=== PATIENT | female | born 1970 | race Asian ===

== ENCOUNTER → 2019-02-10 08:58 | Outpatient (CLI) | payer OTHER, SELFPAY ==
--- NOTE | 2019-02-10 09:04 | DI.MG.S_ITS ---
BILATERAL DIGITAL SCREENING MAMMOGRAM 3D/2D WITH CAD: 02/10/2019 CLINICAL: Routine screening. Comparison is made to exam dated: 05/16/2013 [facility]. There are scattered fibroglandular elements in both breasts. Current study was also evaluated with a Computer Aided Detection (CAD) system. No significant masses, calcifications, or other findings are seen in either breast. There has been no significant interval change. IMPRESSION: NEGATIVE There is no mammographic evidence of malignancy. A 1 year screening mammogram is recommended. This exam was interpreted at Station ID: [id number]. NOTE: For mammograms, a report in lay terms will be sent to the patient. Approximately 15% of breast malignancies will not be visualized mammographically. In the management of a palpable breast mass, a negative mammogram must not discourage biopsy of a clinically suspicious lesion. Electronically Signed By: Sherri nunes/jerry:02/12/2019 14:56:56 letter sent: Normal Exam ACR BI-RADS Category 1: Negative [id number]
[2019-02-10 10:09] LABS: Appearance Urine UA CLEAR; Bilirubin Urine UA NEGATIVE (NEGATIVE); Color Urine UA YELLOW; Glucose Urine UA NEGATIVE (Negative); Ketones Urine UA NEGATIVE (NEGATIVE); Leukocyte Esterase Urine UA NEGATIVE (NEGATIVE); Nitrite Urine UA NEGATIVE (Negative); Occult Blood Urine UA NEGATIVE (Negative); Protein Urine UA NEGATIVE (Negative); Specific Gravity Urine UA 1.025 (1.000-1.035); Urobilinogen Urine UA 0.2 E.U./dL (0.2)
[2019-02-10 10:10] LABS: Add Manual Diff / Slide Review NO; Basophils Absolute Auto 100 /uL (0-100); Eosinophils Absolute Auto 200 /uL (0-450); Eosinophils Percent Auto 3.6 % (2-4); Hematocrit 42.5 % (36-46); Hemoglobin 14.4 g/dL (12.0-16.0); Lymphocytes Absolute Auto 2500 /uL (1100-4500); Lymphocytes Percent Auto 43.9 % (25-40); Mean Corpuscular Hemoglobin 29.5 PG (26-34); Mean Corpuscular Volume 86.8 fL (80-100); Monocytes Absolute Auto 300 /uL (0-900); Monocytes Percent Auto 5.8 % (3-14); Neutrophils Absolute Auto 2600 /uL (1500-7000); Neutrophils Percent Auto 45.7 % (50-75); Platelet Count 234 X10^3/uL (150-400); Red Cell Distribution Width 13.1 % (11.6-14.8); White Blood Cell Count 5.6 X10^3/uL (4.5-11.0)
[2019-02-10 10:21] LABS: Alanine Aminotransferase 44 IU/L (9-52); Albumin Globulin Ratio 1.5 (1.0-2.8); Alkaline Phosphatase 62 U/L (38-126); Aspartate Aminotransferase 23 IU/L (14-36); Bilirubin Total 0.8 mg/dL (0.2-1.3); Blood Urea Nitrogen 14 mg/dL (7-17); Carbon Dioxide 26 mmol/L (22-32); Chloride 103 mmol/L (98-107); Cholesterol 291 mg/dL (140-199); Estimated Glomerular Filt Rate > 60.0 mL/min (>60); Globulin 3.3 g/dL (1.7-4.1); Glucose 113 mg/dL (70-100); HDL Cholesterol 36 mg/dL (40-60); HEMOLYSIS < 15 (0-50); LDL Cholesterol Calculated 217 mg/dL (<100); Sodium 142 mmol/L (137-145); Total Protein 8.3 g/dL (6.3-8.2); Triglycerides 189 mg/dL (35-150)
[2019-02-10 10:35] LABS: Free T3, Triiodothyronine Free 4.19 pg/mL (2.77-5.27); Free T4, Direct Thyroxine 1.07 ng/dL (0.78-2.19)
[2019-02-10 10:49] LABS: Thyroid Stimulating Hormone 4.01 uIU/mL (0.47-4.68)
== END ==
PROVIDERS: PCP Family Medicine; Visit Provider Family Medicine
DX: Z12.31 Encounter for screening mammogram for malignant neoplasm of breast (principal); M54.6 Pain in thoracic spine; M54.9 Dorsalgia, unspecified; G89.29 Other chronic pain; E03.9 Hypothyroidism, unspecified; R51 Headache
CPT/HCPCS: 36415; 77063; 77067; 80053; 80061; 81003; 84439; 84443; 84481; 85025

== ENCOUNTER → 2019-03-20 15:29 | Outpatient (CLI) | payer OTHER, SELFPAY ==
--- NOTE | 2019-03-20 15:31 | DI.RAD.S_ITS ---
PROCEDURE: XR THORACIC SPINE 3V INDICATIONS: THORACIC PAIN, PAIN BETWEEN SHOULDER BLADES, CHRONIC TECHNIQUE: 3 views of the thoracic spine were acquired. COMPARISON: None. FINDINGS: Bones: No fractures or dislocations. Gentle levocurvature of the lower thoracic spine. This is likely related to positioning. No suspicious bony lesions. 12 pairs of ribs are noted, and appear intact where visualized. Soft tissues: No paravertebral stripe thickening. IMPRESSION: Thoracic spine without acute radiographic abnormalities. No significant spondylitic changes identified. Dictated by: William Ying M.D. on 03/20/2019 at 17:34 Approved by: William Ying M.D. on 03/20/2019 at 17:35
== END ==
PROVIDERS: PCP Family Medicine; Visit Provider Family Medicine
DX: M54.6 Pain in thoracic spine (principal); M54.9 Dorsalgia, unspecified; S39.012A Strain of muscle, fascia and tendon of lower back, initial encounter; G89.29 Other chronic pain
CPT/HCPCS: 72072

== ENCOUNTER → 2020-03-21 15:31 | Outpatient (CLI) | payer BC, SELFPAY ==
--- NOTE | 2020-03-21 15:32 | DI.RAD.S_ITS ---
PROCEDURE: XR SHOULDER LT MIN 2V INDICATIONS: Left shoulder pain TECHNIQUE: 3 views of the shoulder were acquired. COMPARISON: None. FINDINGS: Bones: No fractures or dislocations. No suspicious bony lesions. Visualized ribs appear intact. Soft tissues: No suspicious soft tissue calcifications. IMPRESSION: Negative examination. If the patient's pain or other symptoms persist, consider further evaluation with MRI Dictated by: Patricio Christensen M.D. on 03/21/2020 at 16:36 Approved by: Patricio Christensen M.D. on 03/21/2020 at 16:37
== END ==
PROVIDERS: PCP Family Medicine; Referring Provider Family Medicine; Visit Provider Family Medicine
DX: M75.02 Adhesive capsulitis of left shoulder (principal); M75.42 Impingement syndrome of left shoulder; M25.512 Pain in left shoulder
CPT/HCPCS: 73030

== ENCOUNTER → 2020-03-28 08:55 | Outpatient (CLI) | payer BC, SELFPAY ==
[2020-03-28 10:01] LABS: Hemoglobin A1C% w Est Avg Glu 6.3 % (4.0-6.0)
[2020-03-28 10:20] LABS: Cholesterol 293 mg/dL (140-199); HDL Cholesterol 42 mg/dL (40-60); LDL Cholesterol Calculated 218 mg/dL (<100); Triglycerides 167 mg/dL (35-150)
[2020-03-28 10:51] LABS: TSH w/ Reflex to FT4 3.65 uIU/mL (0.47-4.68)
== END ==
PROVIDERS: PCP Family Medicine; Referring Provider Family Medicine; Visit Provider Family Medicine
DX: E03.9 Hypothyroidism, unspecified (principal); E78.2 Mixed hyperlipidemia
CPT/HCPCS: 36415; 80061; 83036; 84443

== ENCOUNTER → 2020-07-25 06:23 | Outpatient (CLI) | payer BC, SELFPAY ==
--- NOTE | 2020-07-25 06:28 | DI.MRI.S_ITS ---
PROCEDURE: MR SHOULDER LT WO CON INDICATIONS: left shoulder pain/frozen shoulder TECHNIQUE: Noncontrast oblique coronal T2 fast spin echo with fat saturation, oblique sagittal T1 spin echo and T2 fast spin echo with fat saturation, axial T1 spin echo and T2 fast spin echo with fat saturation through the shoulder. COMPARISON: [facility], CR, XR SHOULDER LT MIN 2V, 03/21/2020, 16:35. FINDINGS: Image quality: Excellent. Rotator cuff: There is mild to moderate articular surface partial thickness tearing in the supraspinatus distally extending to its insertion. This measures approximately 1.5 cm in anteroposterior dimension. Mild edema is demonstrated more proximally along the myotendinous junction within the anterior supraspinatus. No discrete full-thickness tear or tendon retraction. The infraspinatus, subscapularis, and teres minor appear intact. Sagittal images demonstrate no fatty muscle atrophy. Bones and bursae: No bone marrow contusions or fractures. There is mild acromioclavicular joint degeneration. The acromion demonstrates conventional anatomy, without an os acromiale. A small amount of subacromial-subdeltoid bursal fluid is present anteriorly. Capsule and soft tissues: There is mild degenerative signal within the posterosuperior, anterior inferior, and inferior labrum. The glenohumeral ligaments appear intact. The long head of the biceps tendon demonstrates normal location and morphology. There is mild edema within the rotator interval and minimal edema along the axillary pouch suggestive of a mild capsulitis. The coracohumeral ligament is normal in thickness. IMPRESSION: 1. Mild to moderate articular surface partial thickness tearing in the distal supraspinatus. No discrete full-thickness tear or tendon retraction. 2. Mild acromioclavicular joint degeneration with a small amount of subacromial/subdeltoid bursal fluid anteriorly . The findings are suggestive of impingement in the appropriate clinical context. 3. Mild edema within the rotator interval and minimal edema along the axillary pouch may reflect a mild capsulitis. Dictated by: Horacio Gallagher M.D. on 07/25/2020 at 9:31 Approved by: Horacio Gallagher M.D. on 07/25/2020 at 9:41
== END ==
PROVIDERS: PCP Family Medicine; Referring Provider Family Medicine; Visit Provider Family Medicine
DX: M75.02 Adhesive capsulitis of left shoulder (principal); M75.42 Impingement syndrome of left shoulder; S46.912S Strain of unspecified muscle, fascia and tendon at shoulder and upper arm level, left arm, sequela; M25.412 Effusion, left shoulder; M19.012 Primary osteoarthritis, left shoulder
CPT/HCPCS: 73221

== ENCOUNTER → 2023-01-31 07:23 | Outpatient (CLI) | payer BC, SELFPAY ==
[2023-01-31 08:11] LABS: Add Manual Diff / Slide Review NO; Basophils Absolute Auto 100 /uL (0-100); Basophils Percent Auto 1.1 % (0-2); Eosinophils Absolute Auto 300 /uL (0-450); Eosinophils Percent Auto 4.9 % (2-4); Hematocrit 41.4 % (36-46); Hemoglobin 13.9 g/dL (12.0-16.0); Lymphocytes Absolute Auto 3300 /uL (1100-4500); Lymphocytes Percent Auto 47.3 % (25-40); Mean Corpuscular HGB Conc 33.7 % (30-36); Mean Corpuscular Hemoglobin 28.8 PG (26-34); Mean Corpuscular Volume 85.4 fL (80-100); Monocytes Absolute Auto 400 /uL (0-900); Monocytes Percent Auto 5.3 % (3-14); Neutrophils Absolute Auto 2900 /uL (1500-7000); Neutrophils Percent Auto 41.4 % (50-75); Platelet Count 224 X10^3/uL (150-400); Red Blood Cell Count 4.85 X10^6/uL (4.0-5.2); Red Cell Distribution Width 13.6 % (11.6-14.8); White Blood Cell Count 6.9 X10^3/uL (4.5-11.0)
[2023-01-31 08:24] LABS: Alanine Aminotransferase 57 IU/L (<35); Albumin 4.4 g/dL (3.5-5.0); Albumin Globulin Ratio 1.3 (1.0-2.8); Alkaline Phosphatase 61 U/L (38-126); Aspartate Aminotransferase 24 IU/L (14-36); BUN Creatinine Ratio 29.4 (6-22); Bilirubin Total 0.4 mg/dL (0.2-1.3); Blood Urea Nitrogen 20 mg/dL (7-17); Calcium 9.5 mg/dL (8.4-10.2); Carbon Dioxide 23 mmol/L (22-32); Chloride 105 mmol/L (98-107); Cholesterol 261 mg/dL (140-199); Estimated Glomerular Filt Rate > 60 mL/min (>60); Globulin 3.3 g/dL (1.7-4.1); Glucose 121 mg/dL (70-100); HDL Cholesterol 33 mg/dL (40-60); HEMOLYSIS 21 (0-50); Hemoglobin A1C% w Est Avg Glu 6.4 % (4.0-6.0); LDL Cholesterol Calculated 182 mg/dL (<100); Potassium 4.1 mmol/L (3.4-5.1); Sodium 138 mmol/L (137-145); Total Protein 7.7 g/dL (6.3-8.2); Triglycerides 231 mg/dL (35-150)
[2023-01-31 08:54] LABS: TSH w/ Reflex to FT4 5.68 uIU/mL (0.47-4.68)
[2023-01-31 09:17] LABS: Creatinine Urine Random 93.3 mg/dL
[2023-01-31 09:30] LABS: Microalbumin Urine Random < 0.6 mg/dL (0-1.6)
[2023-01-31 09:56] LABS: Free T4, Direct Thyroxine 0.97 ng/dL (0.78-2.19)
== END ==
PROVIDERS: PCP Family Medicine; Referring Provider Family Medicine; Visit Provider Family Medicine
DX: E03.9 Hypothyroidism, unspecified (principal); E78.2 Mixed hyperlipidemia; R73.03 Prediabetes
CPT/HCPCS: 36415; 80053; 80061; 82043; 82570; 83036; 84439; 84443; 85025

== ENCOUNTER → 2024-11-09 09:43 | Outpatient (CLI) | payer BC, SELFPAY ==
--- NOTE | 2024-11-09 09:44 | DI.RAD.S_ITS ---
PROCEDURE: XR WRIST RT MIN 3V INDICATIONS: right wrist pain, possible ganglion cyst TECHNIQUE: 4 views of the wrist were acquired. COMPARISON: None. FINDINGS: Bones: No fractures or dislocations. Accessory ossicle posterior to the lunate best seen on the lateral projection. No osseous erosion is seen. No suspicious bony lesions. Soft tissues: No suspicious soft tissue calcifications. IMPRESSION: No acute fracture demonstrated. Accessory ossicle posterior to the lunate. Dictated by: Vikas Haney M.D. on 11/10/2024 at 14:26 Approved by: Vikas Haney M.D. on 11/10/2024 at 14:34
== END ==
PROVIDERS: PCP Family Medicine; Referring Provider Family Medicine; Visit Provider Family Medicine
DX: M67.431 Ganglion, right wrist (principal); M25.531 Pain in right wrist
CPT/HCPCS: 73110

== ENCOUNTER → 2025-02-22 12:54 | Outpatient (CLI) | payer BC, SELFPAY ==
--- NOTE | 2025-02-22 12:57 | DI.MRI.S_ITS ---
PROCEDURE: MR WRIST RT W CON
--- NOTE | 2025-02-22 12:57 | DI.RAD.S_ITS ---
PROCEDURE: FL ARTHROGRAM WRIST RT
[2025-02-22] MEDS: LIDOCAINE 1% 20 ML INJ (13:42)
[2025-02-22] MEDS: SODIUM CHLORIDE 0.9 % 20 ML VIAL IV (13:43)
== END ==
LOC: RAD 12:54
PROVIDERS: PCP Family Medicine; Referring Provider Family Medicine; Visit Provider Physician Assistant Surgical
DX: S63.8X1A Sprain of other part of right wrist and hand, initial encounter (principal); X58.XXXA Exposure to other specified factors, initial encounter
CPT/HCPCS: 25246; 73115; 73222; A9579; Q9967

== ENCOUNTER → 2025-03-15 15:53 | Outpatient (CLI) | payer BC, SELFPAY ==
--- NOTE | 2025-03-15 15:55 | DI.MG.S_ITS ---
MM screening mammo BI: 03/15/2025. BI-RADS: 1 CLINICAL: 54-year old female for bilateral screening mammogram. Tyrer-Cuzick lifetime risk of 7.0%. No personal or first-degree family history of breast cancer. PRIOR EXAMS 02/10/2019. MAMMOGRAPHY TECHNIQUE: 2D and 3D (tomosynthesis) digital mammographic views obtained, with additional images as needed for full coverage. Current study was also evaluated with a Computer Aided Detection (CAD) system. DENSITY B. There are scattered areas of fibroglandular density. MAMMOGRAPHY FINDINGS Bilateral: No suspicious mass, asymmetry, microcalcification, or other abnormality seen. IMPRESSION: * No evidence of malignancy. RECOMMENDATIONS Bilateral * Annual screening mammography. OVERALL ASSESSMENT CATEGORY BI-RADS-1: Negative. The [employer] recommends annual screening mammography beginning at age 40 for women with average risk of breast cancer. ELECTRONICALLY SIGNED: Mariana Galdamez M.D. on 03/18/2025 at 12:56:39 PM PT Interpreting Station ID: [id number]
== END ==
LOC: MAMMO 15:54
PROVIDERS: PCP Family Medicine; Referring Provider Family Medicine; Visit Provider Family Medicine
DX: Z12.31 Encounter for screening mammogram for malignant neoplasm of breast (principal)
CPT/HCPCS: 77063; 77067